=== PATIENT | male | born 1945 ===

== ENCOUNTER 2018-09-11 08:10 | Outpatient (CLI) | payer MEDICARE | END 2018-09-11 08:11 | disposition home or self-care (01) | LOC: C.PAT 08:10 ==

== ENCOUNTER 2018-09-30 07:17 | Day surgery (SDC) | payer MEDICARE ==
[2018-09-11 08:25] VITALS: BMI 19.9
[~2018-09-30 07:17] MED LIST: Ciprofloxacin 0.3% OPTH SOLN OD SCH; Ketorolac Tromethamine 0.5% Opth Soln (3 ml) OD SCH; Lactated Ringer's 500 ML IV ONE; Phenylephrine 2.5% Opht Soln OD SCH; Tropicamide 0.5% Opht Sol OD SCH; acetaZOLAMIDE 500 mg SR Cap PO ONE
[2018-09-30] MEDS ORDERED: Tetracaine 0.5% Ophth (OR ONLY) ONE (07:50)
[2018-09-30] MEDS ORDERED: Povidone Iodine Ophthalmic 5% Soln ONE (07:50)
[2018-09-30] MEDS ORDERED: Chondroitin/Hyaluronate Opth Syringe KIT (0.55 ml-0.5 ml) IO ONE (07:51)
[2018-09-30] MEDS ORDERED: Hyaluronidase Human, Recombi 150 U/ML VIAL ONE (07:56)
[2018-09-30] MEDS ORDERED: Lactated Ringer's 500 ML IV ONE (08:16)
[2018-09-30 08:27] VITALS: O2SAT 100
[2018-09-30] MEDS ORDERED: Carbachol 0.01% IO ONE (10:10)
[2018-09-30] MEDS ORDERED: Lidocaine 2% MPF (5 ml) Inj ONE (10:10)
[2018-09-30] MEDS ORDERED: Midazolam 2 MG/2 ML VIAL ONE (10:51)
[2018-09-30] MEDS ORDERED: acetaZOLAMIDE 500 mg SR Cap PO ONE (12:00)
[2018-09-30 12:05] VITALS: BP 132/75; PULSE 57; RESP 19; TEMP 97.5
--- NOTE | 2018-09-30 16:46 | OP ---
PROCEDURE DATE: 09/30/2018 PREOPERATIVE DIAGNOSIS: Mature cataract, right eye. POSTOPERATIVE DIAGNOSIS: Mature cataract, right eye. OPERATIVE PROCEDURE: Phacoemulsification, right eye, insertion of posterior chamber lens implant. SURGEON: Cornelio Kee MD CO-SURGEON: Marco Omalley MD ANESTHESIA TYPE: Local intravenous sedation. ANESTHESIOLOGIST: . PROCEDURE: The patient was brought into the operating room, placed in supine position, prepped and draped in the usual fashion for ophthalmic surgery. Lid speculum was inserted, lids and exposing globe. A side-port incision was made superiorly and inferiorly with a disposable sharp blade. Anterior chamber was filled with Viscoat. A near clear corneal incision was made temporally with a 2.75-mm keratome. Capsulorrhexis was then performed with Utrata forceps. Hydrodissection carried out with balanced salt solution. Nucleus was phacoemulsified. Remaining cortical fragments were removed with a split irrigation and aspiration system. The capsular sac was filled with Provisc. A posterior chamber lens was then injected into the capsular sac and rotated into horizontal position. Provisc was aspirated out of the anterior chamber. The pupil was constricted with Miochol. The wound was found to be watertight. Topical Betadine, Timoptic, and TobraDex ointment and pressure patch were applied. The patient tolerated the procedure well. Cornelio Kee MD
== END 2018-09-30 12:14 | disposition home or self-care (01) ==
LOC: C.SDS 07:17
PROVIDERS: ATTEND Ophthalmology
DX: H26.9 Unspecified cataract (principal)
CPT/HCPCS: 66984; C1713; J2250; J3010; J3470; J7120; V2632

== ENCOUNTER 2018-12-09 07:06 | Day surgery (SDC) | payer MEDICARE ==
[~2018-12-09 07:06] MED LIST changes: -Ciprofloxacin 0.3% OPTH SOLN OD SCH; +Ciprofloxacin 0.3% OPTH SOLN OS SCH; -Ketorolac Tromethamine 0.5% Opth Soln (3 ml) OD SCH; +Ketorolac Tromethamine 0.5% Opth Soln (3 ml) OS SCH; +Lactated Ringer's 1,000 ML IV ONE; -Lactated Ringer's 500 ML IV ONE; -Phenylephrine 2.5% Opht Soln OD SCH; +Phenylephrine 2.5% Opht Soln OS SCH; -Tropicamide 0.5% Opht Sol OD SCH; +Tropicamide 1% Opht SOLUTION OS SCH
[2018-12-09] MEDS ORDERED: Povidone Iodine Ophthalmic 5% Soln ONE (07:25)
[2018-12-09] MEDS ORDERED: Hyaluronidase Human, Recombi 150 U/ML VIAL ONE (07:26)
[2018-12-09] MEDS ORDERED: Carbachol 0.01% IO ONE (07:26)
[2018-12-09] MEDS ORDERED: Tobramycin/Dexamethasone OPHT OINT ONE (07:26)
[2018-12-09] MEDS ORDERED: Chondroitin/Hyaluronate Opth Syringe KIT (0.55 ml-0.5 ml) IO ONE (07:26)
[2018-12-09] MEDS ORDERED: Lidocaine 2% MPF (5 ml) Inj ONE (07:27)
[2018-12-09] MEDS ORDERED: Lactated Ringer's 500 ML IV ONE (07:48)
[2018-12-09 07:57] VITALS: O2SAT 100
[2018-12-09 08:00] VITALS: BMI 19.5
[2018-12-09] MEDS ORDERED: Midazolam 2 MG/2 ML VIAL ONE (09:51)
[2018-12-09] MEDS ORDERED: acetaZOLAMIDE 500 mg SR Cap PO ONE (11:00)
[2018-12-09 11:08] VITALS: RESP 17
[2018-12-09 11:35] VITALS: BP 136/68; PULSE 57; TEMP 98.1
--- NOTE | 2018-12-09 21:03 | OP ---
PROCEDURE DATE: 12/09/2018 PREOPERATIVE DIAGNOSIS: Mature cataract, left eye. POSTOPERATIVE DIAGNOSIS: Mature cataract, left eye. PROCEDURE: Phacoemulsification, left eye, with insertion of posterior chamber lens implant. SURGEON: Cornelio Kee MD CO-SURGEON: Marco Omalley MD ANESTHESIA TYPE: Local IV sedation. PROCEDURE: The patient was brought into the operating room, placed in supine position, prepped and draped in the usual fashion for ophthalmic surgery. Lid speculum was inserted, lids and exposing globe. A side-port incision was made superiorly and inferiorly with a disposable sharp blade. Anterior chamber was filled with Viscoat. A near clear corneal incision was made temporally with a 2.75-mm keratome. Capsulorrhexis was then performed with Utrata forceps. Hydrodissection carried out with balanced salt solution. Nucleus was phacoemulsified. Remaining cortical fragments were removed with a split irrigation and aspiration system. The capsular sac was filled with Provisc. A posterior chamber lens was then injected into the capsular sac and rotated into horizontal position. Provisc was aspirated out of the anterior chamber. The pupil was constricted with Miochol. The wound was found to be watertight. Topical Betadine, Timoptic, and TobraDex ointment and pressure patch were applied. The patient tolerated the procedure well. Cornelio Kee MD
== END 2018-12-09 11:33 | disposition home or self-care (01) ==
LOC: C.SDS 07:06
PROVIDERS: ATTEND Ophthalmology
DX: H25.9 Unspecified age-related cataract (principal); I10 Essential (primary) hypertension; E78.5 Hyperlipidemia, unspecified; I25.10 Atherosclerotic heart disease of native coronary artery without angina pectoris; Z95.1 Presence of aortocoronary bypass graft; I25.2 Old myocardial infarction; Z79.899 Other long term (current) drug therapy
CPT/HCPCS: 66984; J2250; J3010; J3470; J7120; V2632